=== PATIENT | male | born 2000 ===

== ENCOUNTER 2018-10-17 08:35 | Emergency (ER) | payer OTHER ==
[2018-10-17] MEDS ORDERED: CETI10CA8 PO (08:58)
[2018-10-17] MEDS ORDERED: MONT10TA PO (08:58)
[2018-10-17] MEDS ORDERED: KETOROLAC 15 MG/ML VIAL IVP ONE (09:20)
[2018-10-17] MEDS ORDERED: NS(*) 0.9% 1000 ML BAG 1,000 ML IV ONE ×2 (09:20→10:40)
[2018-10-17 10:13] LABS: PLATELET COUNT, AUTOMATED 299 K/uL (150-450)
[2018-10-17] MEDS ORDERED: LOPERAMIDE HCL 2 MG CAP PO ONE (10:40)
[2018-10-17 11:00] VITALS: BP 125/80
[2018-10-17] MEDS ORDERED: ONDA4TAB9 PO (11:20)
--- NOTE | 2018-10-17 11:21 | ER Report ---
History and Physical Time Seen By MD: 08:35 HPI/ROS CHIEF COMPLAINT: Vomiting, diarrhea, not tolerating by mouth HISTORY OF PRESENT ILLNESS: 18-year-old male presents with multiple episodes of vomiting and loose stools over past 2 days. He has felt chills as well. Diarrhea has occurred approximately 7-8 times a day. It is watery and not bloody or black or mucousy. He has had no known environmental exposure. He has been vomiting 4 times a day. Vomitus food contents only. He has also been nauseous. He has no abdominal pain, just feels cramping associated with the diarrhea and nausea. 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 He has no active medical problems. He denies tobacco or alc ohol use. REVIEW OF SYSTEMS: Constitutional: chills Eyes: No discharge. ENT: mild sore throat. Cardiovascular: No chest pain, no palpitations. Respiratory: No cough, no shortness of breath. Gastrointestinal: above Genitourinary: No hematuria. Musculoskeletal: No back pain. Skin: No rashes. Neurological: mild frontal headache Remainder of the 14 system rev: Yes Allergies: Coded Allergies: cefdinir (Verified Allergy, Unknown, RASH, 10/17/18) Home Meds Active Scripts Ondansetron 4 Mg Odt (ONDANSETRON 4 MG ODT) 4 Mg Tab.rapdis, 4 MG PO Q8H for Nausea, #15 TAB Prov:JUSTIN MARTINEZ MD 10/17/18 Reported Medications Cetirizine Hcl (ZYRTEC) 10 Mg Capsule, 10 MG PO QDAY, CAPSULE 10/17/18 Montelukast Sodium (SINGULAIR) 10 Mg Tablet, 1 TAB PO QDAY, TAB 10/17/18 Reviewed Nurses Notes: Yes Hx Substance Use Disorder: No Hx Alcohol Use: No Constitutional Vital Sign - Last 24 Hours 10/17/18 10/17/18 10/17/18 10/17/18 08:35 08:45 08:55 09:00 Temp 98.7 Pulse 99 103 Resp 15 B/P (MAP) 132/96 (108) 132/98 141/88 (105) Pulse Ox 96 O2 Delivery Room Air 10/17/18 10/17/18 10/17/18 10/17/18 09:05 09:30 09:35 09:40 Pulse 91 83 87 B/P (MAP) 138/92 (107) Pulse Ox 94 93 92 10/17/18 10/17/18 10/17/18 10/17/18 10:00 10:30 10:40 11:00 Pulse 85 B/P (MAP) 129/77 (94) 129/81 (97) 125/80 (95) Pulse Ox 94 10/17/18 11:10 Pulse 87 Pulse Ox 96 Physical Exam General Appearance: The patient is alert, has no immediate need for airway protection and no signs of toxicity. Eyes: Pupils equal and round no pallor or injection. ENT, Mouth: Mucous membranes are moist. Respiratory: There are no retractions, lungs are clear to auscultation. Cardiovascular: Regular rate and rhythm. no m/r/g Gastrointestinal: hyperactive bowel sounds. No focal ttp Neurological: alert, oriented, no gross deficits Skin: Warm and dry, no rashes. Musculoskeletal: Neck is supple non tender. Extremities are nontender, nonswollen and have full range of motion. DIFFERENTIAL DIAGNOSIS: After history and physical exam differential diagnosis was considered for sepsis, dehydration, acute abdomen, viral illness, or other emergent etiology. Medical Decision Making Data Points Result Diagram: 10/17/18 0935 10/17/18 0935 Laboratory Hematology Test 10/17/18 09:35 White Blood Count 9.6 k/uL (4.5-11.0) Red Blood Count 5.14 M/uL (4.00-5.60) Hemoglobin 15.7 g/dL (14.0-18.0) Hematocrit 46.6 % (42.0-52.0) Mean Corpuscular Volume 90.6 fL (80.0-96.0) Mean Corpuscular Hemoglobin 30.6 pg (26.0-33.0) Mean Corpuscular Hemoglobin Concent 33.7 g/dL (32.0-36.0) Red Cell Distribution Width 13.7 % (11.5-14.5) Platelet Count 299 K/uL (150-450) Mean Platelet Volume 7.1 fL (7.2-11.1) L Neutrophils (%) (Auto) 76.2 % (39.4-72.5) H Lymphocytes (%) (Auto) 9.4 % (17.6-49.6) L Monocytes (%) (Auto) 13.7 % (4.1-12.4) H Eosinophils (%) (Auto) 0.5 % (0.4-6.7) Basophils (%) (Auto) 0.2 % (0.3-1.4) L Nucleated RBC Relative Count (auto) 0.1 /100WBC Neutrophils # (Auto) 7.3 K/uL (2.0-7.4) Lymphocytes # (Auto) 0.9 K/uL (1.3-3.6) L Monocytes # (Auto) 1.3 K/uL (0.3-1.0) H Eosinophils # (Auto) 0.0 K/uL (0.0-0.5) Basophils # (Auto) 0.0 K/uL (0.0-0.1) Nucleated RBC Absolute Count (auto) 0.01 K/uL Peripheral Blood Smear No Y/N Chemistry Test 10/17/18 09:35 Sodium Level 140 mmol/L (137-145) Potassium Level 3.7 mmol/L (3.5-5.0) Chloride Level 101 mmol/L (98-107) Carbon Dioxide Level 24 mmol/L (22-30) Blood Urea Nitrogen 13 mg/dl (9-21) Creatinine 1.00 mg/dl (0.66-1.25) Glomerular Filtration Rate Calc > 60.0 Random Glucose 88 mg/dl (75-110) Calcium Level 9.7 mg/dl (8.4-10.2) Serology Test 10/17/18 09:20 Influenza Virus Type A (PCR) Negative (NEGATIVE) Influenza Virus Type B (PCR) Negative (NEGATIVE) ED Course/Re-evaluation ED Course 20 m vomiting, diarrhea; borderline tachycardia. No acute abd. Has mild dehdration; ivf administered with sig improvement in sympotms. Pt has continued loose stool in ED and is adminsitered imodium. Tolerating po on d/c. Discussed SRP's, considered but doubt appendicitis, sepsis, or other emergent cause of symptoms. Decision to Disposition Date: Oct 17, 2018 Decision to Disposition Time: 11:16 Depart Departure Latest Vital Signs Vital Signs Date Time Temp Pulse Resp B/P (MAP) Pulse Ox O2 Delivery O2 Flow Rate FiO2 10/17/18 11:10 87 96 10/17/18 11:00 125/80 (95) 10/17/18 08:55 98.7 15 Room Air Impression: Primary Impression: Vomiting and diarrhea Condition: Improved Disposition: HOME OR SELF-CARE New Scripts Ondansetron 4 Mg Odt (ONDANSETRON 4 MG ODT) 4 Mg Tab.rapdis 4 MG PO Q8H for Nausea, #15 TAB Prov: JUSTIN MARTINEZ MD 10/17/18 Patient Instructions: Acute Nausea and Vomiting (ED) Additional Instructions: As we discussed, I recommend you take up to 2 more imodium, 1 after each loose stool. Take zofran for nausea. Your virus can be transmitted to others, so continue to use mask as much as possible and wash hands frequently. Return if feeling worse, not tolerating fluids, or any concerns. JUSTIN MARTINEZ MD Oct 17, 2018 11:21
[2018-10-17] MEDS ORDERED: LOPERAMIDE HCL 2 MG PO ONE ×2 (11:25→11:30)
== END 2018-10-17 11:43 | disposition home or self-care (01) ==
LOC: ER 09:16
DX: R11.2 Nausea with vomiting, unspecified (principal); R19.7 Diarrhea, unspecified
CPT/HCPCS: 85025; 87502; 96361; 96374; 99283; J1885; J7030; 82310; 82374; 82435; 82565; 82947; 84132; 84295; 84520